=== PATIENT | female | born 1970 | race Caucasian/White ===

== ENCOUNTER → 2019-09-01 12:22 | Outpatient (CLI) | payer OTHER, SELFPAY ==
[2019-09-01 12:43] LABS: International Normalized Ratio 0.9; Prothrombin Time (Protime)PT. 11.7 SECONDS (11.7-14.9)
[2019-09-01 14:38] LABS: D-Dimer Quantitative (DVT/PE) 0.33 FEU/ug/m (0.27-0.49)
== END ==
PROVIDERS: PCP Family Medicine; Referring Provider Registered Nurse; Visit Provider Registered Nurse
DX: R06.02 Shortness of breath (principal); R05 Cough
CPT/HCPCS: 85379; 85610

== ENCOUNTER 2020-04-11 09:52 | Observation (INO) | payer OTHER, SELFPAY ==
[2020-04-11] VITALS (14 sets, daily range): BP systolic 118–150; BP diastolic 53–87; PULSE 70–97; RESP 15–22; TEMP 36.4–37.2; O2SAT 97–100; BMI 36.4; BMI 34.4
--- NOTE | 2020-04-11 10:25 | EKG12_ITS ---
Test Reason : CP Blood Pressure : / mmHG Vent. Rate : 086 BPM Atrial Rate : 086 BPM P-R Int : 152 ms QRS Dur : 078 ms QT Int : 394 ms P-R-T Axes : 022 045 056 degrees QTc Int : 471 ms Sinus rhythm with occasional Premature ventricular complexes Otherwise normal ECG When compared with ECG of 11-APR-2020 09:58, MANUAL COMPARISON REQUIRED, DATA IS UNCONFIRMED Confirmed by KAELA MTZ, CASS ([id number]), pictures editor SHERYL ESTEVES ([id number]) on 04/14/2020 11:31:17 AM Referred By: RAUDEL Confirmed By:CASS SHERWOOD MD
--- NOTE | 2020-04-11 10:25 | RAD_ITS ---
EXAM DESCRIPTION: PORTABLE AP CHEST CLINICAL HISTORY: 49 years Female, Intermittent chest pain since Friday. Intermittent chest pain since Friday. COMPARISON: None FINDINGS: A battery type device is noted projected over the left hemithorax. The rest of the thorax is intact. The heart and mediastinum appear to be within normal limits. The lungs appear to be well areated without evidence of pneumonic consolidation or pleural effusion. RAD/Chest 1 View (Portable) IMPRESSION: No acute pathology Electronically Signed: Daniel Mcmahon, at 11:32 EST Tel , Service support ,
--- NOTE | 2020-04-11 10:26 | ED.VISSUMM ---
- ER Visit Summary Date of Service: 04/11/20 Chief Complaint: Chest pain History of Present Illness: The patient is a 49 F who presents with chest pain that has been intermittent over the past week. Patient states it waxes and wanes. Patient describes as a tightness. Patient states the pain radiates to her left scapula and left arm. Patient states it is worse with exertion and better with rest. Patient admits to some shortness of breath and palpitations with the pain. Patient states she also had a couple episodes of lightheadedness and dizziness. Patient admits to a cough but denies any sputum production. Patient denies any fevers or chills. Physical Examination: Vital signs are stable. Patient is afebrile. Patient is in no acute distress. Oral mucosa is pink and moist. Neck is supple. Trachea is midline. There is no JVD noted. Heart was regular rate and rhythm. Lungs are clear and equal bilaterally. Abdomen is soft. Bowel sounds are normal. There is no tenderness. There is no rebound or guarding noted. Skin is warm dry. Cranial nerves II through XII are intact. There are no focal motor or sensory deficits noted. Extremities are intact. There is no calf tenderness or edema. Test Results: CBC and basic metabolic profile were obtained and were essentially within normal limits. Troponin was normal. EKG was obtained. On my interpretation, it shows a normal sinus rhythm with a rate of 76. There are no acute ST or T wave changes noted. Portable 1 view chest x-ray was obtained. On my interpretation, lung mann are clear. There is normal cardiac silhouette. Bony thorax is normal. There is no acute process noted. Radiologist also read the x-ray and agrees. Because of her dyspnea on exertion, CTA of the chest was obtained. There is no evidence of pulmonary embolism. This was interpreted by the radiologist and reviewed by myself. Emergency Department Course and Treatment: Case was discussed with the patient's primary care physician, Dr. Bean Mina. He stated patient can only walk 6 feet or less before she starts having chest pain and is out of breath. Because of this he recommended admission to the hospital for further cardiac work-up. Case was discussed with the hospitalist. He will admit the patient to his service for observation. Patient understood and was agreeable with the plan. All questions were answered. Disposition: Admit to the hospital for observation Impression: 1. Chest pain of uncertain etiology This note was generated with [employer] dictation software. It may contain incorrect words, spelling, and punctuation that were not noted in review of the chart prior to signing ED Disposition - Plan for ED Patient: Disposition: [facility]
[2020-04-11 10:39] LABS: Absolute Lymphocyte Count 3.18 X10^3/uL (0.83-4.51); Basophil# 0.03 X10^3/uL; Basophil% 0.3 % (0-1); Eosinophil# 0.27 X10^3/uL; Eosinophils% 2.6 % (0-5); Hematocrit 45.7 % (37-47); Hemoglobin 15.2 g/dL (12.0-15.0); Lymphocyte # 3.18 X10^3/ul (4.0); Lymphocyte % 30.6 % (19-41); Mean Corp Hgb Conc 33.3 g/dL (32-36); Mean Corpuscular Hgb 30.5 pg (27.0-32.0); Mean Corpuscular Volume 91.8 fL (81-99); Mean Platelet Vol. 9.7 fl (6.2-12.0); Monocyte# 0.84 X10^3/uL; Monocyte% 8.1 % (0-10); NRBC Flagged by Analyzer 0 % (0-5); Neutrophil # 6.03 X10^3/uL (2.7-7.7); Neutrophil % 57.9 % (47-70); Platelet Count 377 K/mm3 (150-450); RBC Distribution Width CV 12.1 % (11.6-14.6); Red Blood Count 4.98 M/mm3 (4.2-5.4); White Blood Count 10.4 K/mm3 (4.4-11.0)
[2020-04-11 10:52] LABS: Anion Gap 8 (5-15); BUN 16 mg/dL (7-18); Calcium,Total 9.3 mg/dL (8.5-10.1); Chloride 109 mmol/L (98-107); Creatinine, Serum 0.89 mg/dL (0.55-1.02); EST Glomerular Filtration Rate 72 mL/min (>60); Est Glom Filt Rate - Afr Amer 87 mL/min (>60); Estimated Creatinine Clearance 63.25 ml/min; Glucose 117 mg/dL (74-106); Potassium 3.4 mmol/L (3.5-5.1); Sodium Level 140 mmol/L (136-145)
--- NOTE | 2020-04-11 12:01 | CT_ITS ---
STUDY: CTA CHEST REASON FOR EXAM: Female, 49 years old. SOB WITH EXERTION, CP, HEART VALVE DISORDER, ROCHELLE MTN SPOTTED FEVER RADIATION DOSAGE (If Supplied By Facility): CTDIvol = ( 10.96 ) mGy, DLP = ( 402.97 ) mGycm TECHNIQUE: The examination was performed with the intravenous administration of IV 100mL Isovue-370. Post-processing of the angiographic images was performed, with multiplanar reformation and 3D reconstruction. Individualized dose optimization techniques were used for this CT. COMPARISON: Previous portable chest obtained on 04/11/2020 FINDINGS: A CTA of the chest was performed with IV contrast to optimize visualization of the pulmonary arteries. The pulmonary parenchyma was well visualized and appears to be normal. The heart and mediastinum appear to be within normal limits. A CT pulmonary angiogram appears to be normal with no pulmonary emboli identified. There is normal branch pattern of the aortic arch. Bone scanning windows through the thorax show the ribs and thoracic spine to be normal. No extrathoracic masses or lesions are seen. The visualized liver, spleen, and adrenals are normal. CT/CTA Chest W/WO Contrast IMPRESSION: Normal CT pulmonary angiogram. Electronically Signed: Daniel Mcmahon, at 13:18 EST Tel , Service support ,
--- NOTE | 2020-04-11 14:26 | NURSING ---
DR STARKS FOR DR MACRELO
--- NOTE | 2020-04-11 15:54 | HP.PCM_ITS ---
History of Present Illness Date of Admission: 04/11/20 Chief Complaint: Chest pain The patient is a 49 year old F with a PMH as below who presents to the hospital with chest pain. She says that it started about a week ago and does get worse with exertion. She states that she went to an outside hospital on Friday where they check try to monitor got an EKG as well as troponins and then sent her home. 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 She says that she does have some aortic regurgitation that she is being monitored for. She has continued to have chest pain with some radiation to her left shoulder and down her left arm. She says the pain feels more like a tightness as well as shortness of breath currently. She had something similar to this happen with the shortness of breath and a cough in July and she had a work-up at that time with a CT of the chest for PE as well as another cardiac work-up which was negative. She recently restarted having a cough and shortness of breath in February but the chest pain is new. She is scheduled to have PFTs done on April 20 and she was scheduled to have a stress test done on 08 May. In the ER EKG was unremarkable and initial troponin was normal. Past Medical History Allergies adhesive tape Allergy (Verified 04/11/20 15:13) welts iodine Adverse Reaction (Verified 04/11/20 15:13) Nausea shellfish derived Adverse Reaction (Verified 04/11/20 15:13) Nausea tramadol Adverse Reaction (Verified 04/11/20 15:13) Vomiting Home Medications: Ambulatory Orders Medication Instructions Recorded Topiramate [Topamax] 25 mg PO BID 04/11/20 Surgical History: cholecystectomy Smoking Status: Former smoker Tobacco Use: Cigarettes Alcohol: Occasional Drugs: None - *Family History Maternal History Items: COPD Paternal History Items: Cancer Review of Systems Constitutional: Denies: Chills, Fever, Weight Change HEENT: Denies: Head Aches, Sinus Congestion, Sinus Drainage Cardiovascular: Reports: Chest Tightness. Denies: Chest Pain, Palpitations Respiratory: Reports: Cough, Shortness of Breath. Denies: Shortness of breath at rest, Sputum production Gastrointestinal: Denies: Abdominal Pain, Nausea, Vomiting Genitourinary: Denies: Dysuria Musculoskeletal: Denies: Joint Pain, Joint Tenderness Skin: Denies: Rash, Wounds Neurological: Denies: Numbness, Tingling, Focal weakness Psychiatric: Denies: Anxiety, Depression Hematologic/ Lymphatic: Denies: Easy Bruising, Easy Bleeding VTE Information - Inpt Only VTE Present on Admission: No - Physical Exam Vitals/I&O's: Vital Signs Temp Pulse Resp BP Pulse Ox 98.9 F 83 18 118/84 H 97 04/11/20 15:12 04/11/20 15:12 04/11/20 15:12 04/11/20 15:12 04/11/20 15:12 Oxygen Delivery Method Room Air Weight: 194 lb 4.8 oz Body Mass Index (BMI) 34.4 General: Alert, Oriented x3, Cooperative, No apparent distress HEENT: Atraumatic, PERRLA, EOMI, Normocephalic Oral: Moist Mucosa Neck: Supple, No JVD Lungs: Clear to auscultation, Normal air movement, No rhonchi, No wheeze, No rales Cardiovascular: Regular rate, Regular Rhythm, Normal S1, Normal S2, No murmurs Abdomen: Soft, Non Tender, Non-Distended, No Hepato-splenomegaly Extremities: No edema, Capillary Refill Less than 3 Seconds Skin: No rashes, No breakdown Neurological: Neuro grossly intact, Sensory exam intact to light touch and pain Psych/Mental Status: Normal Affect, Appropriate Laboratory Results 04/11/20 10:00: WBC 10.4, RBC 4.98, Hgb 15.2 H, Hct 45.7, MCV 91.8, MCH 30.5, MCHC 33.3, RDW Std Deviation 41.0, RDW Coeff of Cecilia 12.1, Plt Count 377, MPV 9.7, Immature Gran % (Auto) 0.500, Neut % (Auto) 57.9, Lymph % (Auto) 30.6, [place] % (Auto) 8.1, Eos % (Auto) 2.6, Baso % (Auto) 0.3, Absolute Neuts (auto) 6.0, Absolute Lymphs (auto) 3.18, Nucleated RBC % 0 04/11/20 10:00: Sodium 140, Potassium 3.4 L, Chloride 109 H, Carbon Dioxide 23.0, Anion Gap 8, BUN 16, Creatinine 0.89, Estim Creat Clear Calc 63.25, Est GFR (MDRD) Af Amer 87, Est GFR (MDRD) Non-Af 72, BUN/Creatinine Ratio 18.0, Glucose 117 H, Calcium 9.3, Troponin I < 0.015 Current Medications Melatonin (Melatonin 3 Mg Tablet) 3 mg PO QHS PRN PRN PRN Reason: INSOMNIA Nitroglycerin (Nitroglycerin (Inpatient Use) 0.4 Mg Tab.Subl) 0.4 mg SUBLINGUAL Q5M PRN PRN Reason: CARDIAC/CHEST PAIN Ondansetron HCl (Ondansetron 4 Mg/2 Ml Vial) 4 mg IV Q8H PRN PRN PRN Reason: NAUSEA/VOMITING Sodium Chloride (0.9% Saline Lock 10 Ml Syringe) 10 - 40 ml IV UD PRN PRN Reason: SALINE FLUSH Assessment/Plan 1. Chest pain -Obtain serial troponins and a stress test in the morning for further evaluation -She had a CTA of her chest back in July was unremarkable and she is can have PFTs done as an outpatient on the third -I discussed with her the possibility of this being anxiety, she does acknowledge some anxious tics like chewing on pens and also during the exam she al the rapid speech and just seemed a little bit fidgety. I discussed with her that if the troponins are negative the EKG is negative and the stress test is negative that it would be worth it to consider an SSRI on top of her Topamax for possible anxiety -She does have an outpatient printed circuit boards plasma etcher with [facility] that she can follow-up with. -She also had recent lab work including a lipid panel as an outpatient therefore will not repeat DVT: Ambulation OBSV E&M: 09008 Initial observation care L2
[2020-04-11] MEDS: Nitroglycerin (INPATIENT USE) 0.4 MG TAB.SUBL SUBLINGUAL ×3 (20:46→21:02)
[2020-04-11] MEDS: Topiramate 25 MG Tablet PO (21:16)
[2020-04-11] MEDS: 0.9% Saline Lock 10 ML Syringe IV (23:07)
[2020-04-12 02:29] VITALS: BP 106/64; PULSE 73; RESP 16; TEMP 36.6; O2SAT 97
[2020-04-12 03:00] VITALS: PULSE 70
[2020-04-12] MEDS: Acetaminophen 325 MG Tablet 650 MG PO (03:10)
[2020-04-12 05:49] LABS: Anion Gap 4 (5-15); BUN 14 mg/dL (7-18); BUN/Creat Ratio 17.4 RATIO (10-20); Calcium,Total 8.5 mg/dL (8.5-10.1); Chloride 110 mmol/L (98-107); EST Glomerular Filtration Rate 80 mL/min (>60); Est Glom Filt Rate - Afr Amer 97 mL/min (>60); Estimated Creatinine Clearance 70.37 ml/min; Glucose 100 mg/dL (74-106); Potassium 4.5 mmol/L (3.5-5.1); Sodium Level 138 mmol/L (136-145)
[2020-04-12 07:00] VITALS: PULSE 58
[2020-04-12 08:30] VITALS: BP 142/82; PULSE 86; RESP 22; TEMP 36.6; O2SAT 98
--- NOTE | 2020-04-12 10:33 | DCINST_ITS ---
You will use the following diet at home:: Regular Your food should be the consistency of: Regular Discharge Activity: Return to Normal Activity Weight Bearing Status: Weight bearing as tolerated Call your doctor if you observe: Fever of 101 or Higher, Coldness, Increased Pain, Numbness or Tingling, Inability to urinate, Inability to have a bowel movement, Using more than one pad per hour, Shortness of breath, Dizziness, Fainting spells, Swelling in the ankles, Chest pain, Prolonged hiccoughing, Increased palpitations (irregular heartbeat), Calf discomfort, Uncontrolled pain Additional Instructions: Consider SSRI if patient feels anxiety in consultation with PCP patient has Patient has ambulatory 48 hours event monitor by her adult nurse practitioner. Follow-up with a adult nurse practitioner in 2 weeks. She also has a scheduled PFT as an outpatient. Allergies/Adverse Reactions: Allergies adhesive tape Allergy (Verified 04/11/20 15:13) welts iodine Adverse Reaction (Verified 04/11/20 15:13) Nausea shellfish derived Adverse Reaction (Verified 04/11/20 15:13) Nausea tramadol Adverse Reaction (Verified 04/11/20 15:13) Vomiting Medications to take at Discharge Topiramate [Topamax] 25 mg PO BID 04/11/20 Primary Care Physician: Larissa Peña DO [NON CLINICAL AFFILIATE] - Please follow up with your Primary Care Physician in: IN 2 WEEKS Test Results: Test results from this visit will be discussed in further detail at your follow- up appointment, if applicable.
[2020-04-12] MEDS: Topiramate 25 MG Tablet PO (11:02)
--- NOTE | 2020-04-12 12:40 | STRESSREP ---
Stress Test Report Pharmacologic myocardial perfusion stress test. 49-year-old man with a history of chest pain. Stress protocol: Resting EKG demonstrates normal sinus rhythm with a rate of 77 bpm normal intervals are noted resting blood pressure is 124/80 mmHg. 0.4 mg of regadenoson was infused per usual protocol followed by Intravenous saline flush injection continuous EKG monitoring was performed. Maximum heart rate attained was 105 bpm which was 61% of max impacted heart rate the maximum workload was 1 metabolic equivalent. At rest there were no ST or T wave changes noted to suggest abnormal flow reserve at peak infusion nonspecific ST-T wave changes were noted with no meet the criteria for ischemia. No clinical angina was noted. Myocardial perfusion protocol. 13.8 mCi of technetium 99m sestamibi was injected at rest. 0.4 mg of regadenoson was infused per usual protocol. Peak infusion 44.1 mCi of technetium 99m sestamibi was injected stress images were obtained stress and rest images were reconstructed and compared in the short axis vertical long horizontal long axis. Gated images were also obtained Gated SPECT analysis: The gated ejection fraction is 72%. Perfusion SPECT analysis: Review of the images demonstrate normal uptake of tracer noted in all areas of the myocardium the resting images similar demonstrate normal uptake of tracer noted in all areas of the myocardium. No areas were noted to suggest ischemia. Conclusion: Normal pharmacologic myocardial perfusion stress test. Preserved ejection fraction.
--- NOTE | 2020-04-12 13:20 | DS.PCM_ITS ---
Discharge Date and Diagnosis Date of Admission: 04/11/20 Date of Discharge: 04/12/20 Hospital Course and Treatment Imaging Results: 04/12/20 05:55 Nuclear Stress Test - Chemical [NM] AM (NON MEDS) Summary of Care Provided: The patient is a 49 year old F who is being admitted for chest pain. 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 She has cough on and off since July 2019 and tested negative several times for COVID-19 PCR. For last 1 week she has started having chest pain gets worse with exertion. She had an echo done by diaper machine tender on past Friday and was found mild aortic regurgitation that is being monitored by his diaper machine tender Dr. Noonan. Patient also has 48 hours ambulatory event monitor and she was found to have PVCs. She was admitted in PCU. Serial EKG and troponins were unremarkable. ekg monitor tech shows PVCs and sometimes pulsus bigeminy. Patient had Lexiscan nuclear stress test and reported as normal with preserved EF. Her blood pressure and heart rate are controlled. Serum electrolytes are within normal limit. Patient is discharged home and advised to follow-up with PCP and diaper machine tender in 1 to 2 weeks. Follow-up PFT. Advised to follow with PCP to consider SSRI for mild anxiety. Discharge medication reconciliation done. Discharge follow-up instructions completed. Discharge process discussed with the patient and all questions were answered to patient's satisfaction. Objective: Seen and examined. Mild cough on and off since July 2019. No fever. Heart rate and blood pressure is controlled. ekg monitor tech shows occasional PVCs and pulsus bigeminy. Physical exam General: Alert, Oriented x3, Cooperative HEENT: Atraumatic, PERRLA, EOMI, Normocephalic Oral: No Gingival or Mucosal Lesions/ Ulcerations Neck: Supple, No JVD, Negative Carotid Bruits Lungs: Air entry equal in bilateral lung bases. No crepitation/rhonchi Cardiovascular: Regular rate, Regular Rhythm, Normal S1, Normal S2, No murmurs Abdomen: Bowel Sounds Present, Soft, Non Tender, Non-Distended : No renal angle tenderness. No suprapubic tenderness. Extremities: No edema, Capillary Refill Less than 3 Seconds Skin: No rashes, No breakdown Musculoskeletal: No Tenderness to Palpation of Joints or Extremities Neurological: Cranial nerves II-XII grossly intact, Deep Tendon Reflexes 2+/4 and Symmetrical, Neuro grossly intact Psych/Mental Status: Normal Affect, Appropriate. - Physical Exam Vitals/I&O's: Vital Signs Temp Pulse Resp BP Pulse Ox 97.8 F 86 22 H 142/82 H 98 04/12/20 08:30 04/12/20 08:30 04/12/20 08:30 04/12/20 08:30 04/12/20 08:30 Oxygen Delivery Method Room Air Weight: 194 lb 4.8 oz Body Mass Index (BMI) 34.4 Intake and Output for Last 24 Hours 04/10/20 04/11/20 04/12/20 23:59 23:59 23:59 Intake Total 760 / 760 Balance 760 / 760 Laboratory Results 04/11/20 10:00: WBC 10.4, RBC 4.98, Hgb 15.2 H, Hct 45.7, MCV 91.8, MCH 30.5, MCHC 33.3, RDW Std Deviation 41.0, RDW Coeff of Cecilia 12.1, Plt Count 377, MPV 9.7, Immature Gran % (Auto) 0.500, Neut % (Auto) 57.9, Lymph % (Auto) 30.6, [place] % (Auto) 8.1, Eos % (Auto) 2.6, Baso % (Auto) 0.3, Absolute Neuts (auto) 6.0, Absolute Lymphs (auto) 3.18, Nucleated RBC % 0 04/11/20 10:00: Sodium 140, Potassium 3.4 L, Chloride 109 H, Carbon Dioxide 23.0, Anion Gap 8, BUN 16, Creatinine 0.89, Estim Creat Clear Calc 63.25, Est GFR (MDRD) Af Amer 87, Est GFR (MDRD) Non-Af 72, BUN/Creatinine Ratio 18.0, Glucose 117 H, Calcium 9.3, Troponin I < 0.015 04/11/20 16:37: Troponin I < 0.015 04/11/20 19:09: Troponin I < 0.015 04/12/20 05:24: Sodium 138, Potassium 4.5, Chloride 110 H, Carbon Dioxide 24.0, Anion Gap 4 L, BUN 14, Creatinine 0.80, Estim Creat Clear Calc 70.37, Est GFR (MDRD) Af Amer 97, Est GFR (MDRD) Non-Af 80, BUN/Creatinine Ratio 17.4, Glucose 100, Calcium 8.5 Current Medications Acetaminophen (Acetaminophen 325 Mg Tablet) 650 mg PO Q6H PRN PRN PRN Reason: pain 1-02/25 Last Admin: 04/12/20 03:10 Dose: 650 mg Documented by: Melatonin (Melatonin 3 Mg Tablet) 3 mg PO QHS PRN PRN PRN Reason: INSOMNIA Nitroglycerin (Nitroglycerin (Inpatient Use) 0.4 Mg Tab.Subl) 0.4 mg SUBLINGUAL Q5M PRN PRN Reason: CARDIAC/CHEST PAIN Last Admin: 04/11/20 21:02 Dose: 0.4 mg Documented by: Ondansetron HCl (Ondansetron 4 Mg/2 Ml Vial) 4 mg IV Q8H PRN PRN PRN Reason: NAUSEA/VOMITING Sodium Chloride (0.9% Saline Lock 10 Ml Syringe) 10 - 40 ml IV UD PRN PRN Reason: SALINE FLUSH Last Admin: 04/11/20 23:07 Dose: 10 ml Documented by: Topiramate (Topiramate 25 Mg Tablet) 25 mg PO BID ON LICENSE OF [facility] Last Admin: 04/11/20 21:16 Dose: 25 mg Documented by: Discharge Activity: Return to Normal Activity Weight Bearing Status: Weight bearing as tolerated Call your doctor if you observe: Fever of 101 or Higher, Coldness, Increased Pain, Numbness or Tingling, Inability to urinate, Inability to have a bowel movement, Using more than one pad per hour, Shortness of breath, Dizziness, Fainting spells, Swelling in the ankles, Chest pain, Prolonged hiccoughing, Increased palpitations (irregular heartbeat), Calf discomfort, Uncontrolled pain Home Medications: Medications to take at Discharge Topiramate [Topamax] 25 mg PO BID 04/11/20 Primary Care Physician: Larissa Peña DO [NON CLINICAL AFFILIATE] - Please follow up with your Primary Care Physician in: IN 2 WEEKS Medical Necessity - Tobacco Use Smoking Status: Former smoker Tobacco Use: Cigarettes Meaningful Use Info Meaningful Use Diagnoses (Choose all that apply): None applicable OBSV E&M: 51514 Observation care discharge
[2020-04-12 13:27] VITALS: BP 124/76; PULSE 80; RESP 16; TEMP 36.8; O2SAT 96
== END 2020-04-12 13:49 | disposition home or self-care (01) ==
LOC: ED 10:43 → PCU 14:54
PROVIDERS: Hospitalist; Admitting Provider Family Medicine; Emergency Provider Emergency Medicine; PCP Student in an Organized Health Care Education/Training Program; Visit Provider Internal Medicine
DX: R07.89 Other chest pain (principal); I35.1 Nonrheumatic aortic (valve) insufficiency; F17.210 Nicotine dependence, cigarettes, uncomplicated; Z79.899 Other long term (current) drug therapy
CPT/HCPCS: 36415; 71045; 71275; 78452; 80048; 84484; 85025; 93005; 93017; 99218; 99285; A9500; J7030; Q9967; A4216; G0378; J2785